=== PATIENT | male | born 1975 | race Caucasian/White ===

== ENCOUNTER 2017-07-11 10:59 | Emergency (ER) | payer MEDICAID ==
[~2017-07-11] VITALS: Ht 165.1 cm; Wt 79.4 kg
[~2017-07-11 10:59] MED LIST: CEPH250C16 PO; SULF-59 PO
[2017-07-11 11:15] VITALS: BP 139/84
--- NOTE | 2017-07-11 12:14 | NUR ---
Paitent to bed 12.
--- NOTE | 2017-07-11 12:25 | NUR ---
PT PRESENTS TO ER FOR EVALUATION OF UPPER LIP PAIN. PT STATES HE WAS SEEN IN ER 2 DAYS FOR SAME SX AND PRESCRIBED ABX WHICH HE FEELS AREN'T EFFECTIVE.
[2017-07-11 13:03] VITALS: BP 122/76
--- NOTE | 2017-07-11 13:03 | NUR ---
Patient discharged with v/s stable. Written and verbal after care instructions given and explained. Patient alert, oriented and verbalized understanding of instructions. Ambulatory with steady gait. All questions addressed prior to discharge. ID band removed. Patient advised to follow up with PMD. Rx of BACTRM given. Patient educated on indication of medication including possible reaction and side effects. Opportunity to ask questions provided and answered.
== END 2017-07-11 13:03 | disposition home or self-care (01) ==
LOC: MED 10:59
DX: K13.0 Diseases of lips (principal); R03.0 Elevated blood-pressure reading, without diagnosis of hypertension; Z79.899 Other long term (current) drug therapy
CPT/HCPCS: 90471; 90715; 99283

== ENCOUNTER 2019-04-13 14:15 | Emergency (ER) | payer SELFPAY ==
[~2019-04-13] VITALS: Ht 170.2 cm; Wt 89.5 kg
[2019-04-13 14:20] VITALS: BP 106/68
--- NOTE | 2019-04-13 14:22 | NUR ---
PT AMBULATED TO ER BED 06
--- NOTE | 2019-04-13 14:30 | NUR ---
PT C/O LT ANKLE PAIN AND SWELLING X1 DAY. PT TWISTED ANKLE WHILE WALKING PLACING ALL WEIGHT ON LT FOOT. MILD ANKLE SWELLING AND BRUISING TO LT ANKLE AND FOOT. PT ABLE TO MOVE TOES. NO DEFORMITIES NOTED. PT ABLE TO AMBULATE. PT HAS NOT TAKEN ANY MEDS FOR PAIN. 5/10 PAIN WHILE AMBULATING. PT SITTING IN BED WITH SON AT BEDSIDE. VSS, NO RESPIRATORY DISTRESS. MEDHX: DENIES ALLERGIES: DENIES
--- NOTE | 2019-04-13 14:45 | NUR ---
XRAY AT BEDSIDE.
[2019-04-13] MEDS ORDERED: IBUPROFEN 600 MG TAB PO ONE (15:00)
--- NOTE | 2019-04-13 15:10 | NUR ---
Patient discharged with v/s stable. Written and verbal after care instructions given and explained. Patient alert, oriented and verbalized understanding of instructions. Ambulatory with to home. All questions addressed prior to discharge. ID band removed. Patient advised to follow up with PMD. Rx of IBURPROFEN 800MG given. Patient educated on indication of medication including possible reaction and side effects. Opportunity to ask questions provided and answered.
[2019-04-13 15:11] VITALS: BP 106/68
== END 2019-04-13 15:10 | disposition home or self-care (01) ==
LOC: MED 14:15
DX: S93.402A Sprain of unspecified ligament of left ankle, initial encounter (principal); Z79.899 Other long term (current) drug therapy; W01.0XXA Fall on same level from slipping, tripping and stumbling without subsequent striking against object, initial encounter; Y93.89 Activity, other specified; Y92.89 Other specified places as the place of occurrence of the external cause; Y99.8 Other external cause status
CPT/HCPCS: 73610; 99283